=== PATIENT | female | born 1955 | race Caucasian/White ===

== ENCOUNTER 2016-07-12 07:54 | Outpatient (CLI) | payer OTHER ==
[2016-07-12 08:42] LABS: eGFR (African) > 60; eGFR (Non-African) > 60
== END 2016-07-12 07:55 ==
LOC: LAB 07:54
PROVIDERS: ATTEND Physician Assistant
DX: I10 Essential (primary) hypertension (principal); R73.9 Hyperglycemia, unspecified; E78.00 Pure hypercholesterolemia, unspecified
CPT/HCPCS: 36415; 80053; 80061; 83036

== ENCOUNTER 2016-10-02 09:52 | Outpatient (CLI) | payer OTHER ==
--- NOTE | 2016-10-02 13:44 | OP Clinic Progress Note ---
REASON FOR VISIT: Kadie is seen with left-sided otalgia and deep discomfort. The ear canal is nice and clean after several washings. She had some nasal congestion and stuffiness also and blew some yellow out of her nose. She has taken some Keflex and it has not really changed. With a rhinoscope, she has edematous nasal membranes that are somewhat allergic looking, kind of pale and bulky. There is some thick turbid secretions. I do not see polyps. She had sinonasal surgery in 2010. Overall, she has been improved with fewer headaches and generally a better airway. When she gets sinus infections, they tend to resolve much more rapidly. The left eardrum is markedly retracted, stiffened, and pulled in at the malleus. 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 She has had a release of this previously with fairly marked improvement of disequilibrium. With the patient's consent and understanding of the possibility of a perforated eardrum, I did a myringotomy and closed it over with a paper patch. She had at least moderate to 50% improvement of her symptoms immediately. Her balance also seemed to be better. PLAN: I have given her a Z-Anish with a renewal. I will see her back in about 2 weeks. cc: VALERIE Salvador
== END 2016-10-02 09:53 ==
LOC: ENT 09:52
PROVIDERS: ATTEND Otolaryngology
DX: H92.02 Otalgia, left ear (principal); R60.9 Edema, unspecified
CPT/HCPCS: 69610; 99214

== ENCOUNTER 2016-10-09 14:56 | Outpatient (CLI) | payer OTHER ==
--- NOTE | 2016-10-10 11:04 | OP Clinic Progress Note ---
REASON FOR VISIT: This 61-year-old lady returns with somewhat cryptic left-sided neck, ear, throat , jaw, and skull pain. It is not sharp. Not lancinating. At some degree, it comes and goes, but describes it as a very deep ponderous aching. I did a myringotomy at her last visit and she had a small amount of improvement initially but has persisted with the discomfort. I changed the paper patch. The small myringotomy has healed maybe 50 percent in the interval week. I do not see evidence of active infection. Additionally, the neck has no palpable mass. As with a lot of head and neck pain syndrome, it is a little difficult for her to exactly identify the region. She points sometimes over the mandible, sometimes just in the area behind her mandible but not really in the base of the neck. Sometimes she points overlying the mastoid and the general configuration of the C2 nerve distribution. By manual palpation I felt in her throat and the submandibular gland area and also the parotid and they are not tender. I palpated on the left tonsil base enough to get a fairly good gag. She does not feel that was near the etiology of her pain. There is no palpable mass in the neck. With her informed consent and her 's too, I used 1:100,000 epinephrine and 1% Xylocaine local injection with a 20-gauge needle in the C2 nerve distribution. Initially, it did not seem to make much difference but after about 5 minutes, the patient had began to feel like, wow, most of that pain is going away. The exact etiology of the pain syndrome on the left side still is not entirely clear. There is no evident mass. It does not seem to be infectious overlying the parotid. The tonsillar fossa does not seem to have pain and discomfort. PLAN: I talked with her and her . I think we need to at least get a CT scan of the skull base or the neck. Either a CT with contrast or an MRI. She will need to get clearance by her insurance company to get this done. Patient will be seen in follow up after she gets that. She is at least improved today with the Xylocaine local injection relief in the left nape of neck area--the C2 nerve distribution. VALERIE Amanda
== END 2016-10-09 14:57 ==
LOC: ENT 14:56
PROVIDERS: ATTEND Otolaryngology
DX: M54.2 Cervicalgia (principal); H92.02 Otalgia, left ear; G44.89 Other headache syndrome; R68.84 Jaw pain
CPT/HCPCS: 64450; 99214

== ENCOUNTER 2016-10-13 10:34 | Outpatient (CLI) | payer OTHER ==
[2016-10-13 11:09] LABS: eGFR (African) > 60; eGFR (Non-African) > 60
--- NOTE | 2016-10-13 18:50 | Diagnostic Imaging Report ---
[facility] [address] [facility] [address] [place], [place]. [address] Report Submission Date: Oct 13, 2016 6:49:02 PM CDT Patient Study Name: RAGHU LOZADA Date: Oct 13, 2016 11:25:30 AM CDT Modality Type: MR Gender: F Description: MRI SOFT TISSUE NECK W & W/O CONTRAST : 55 Institution: [facility] Physician: FREEMAN LUGO MRI soft tissue neck with and without contrast. History: Left sided neck pain and possible mass. Technique: Multiplanar multisequence images of the neck were obtained prior to and following the uneventful administration 15 cc omniscan . Findings: There is evidence of previous anterior cervical fusion noted C5 to C7. The bilateral parotid and submandibular glands are normal and symmetric in size. No adenopathy is seen throughout the neck. The vascular structures are normal in caliber throughout. No abnormal post contrast enhancement . The airway does appear to be patent. No suspicious mass is visualized. Limited views of the thyroid gland are unremarkable. Impression: 1. No evidence of mass or adenopathy within the neck. 2. Evidence of previous anterior cervical fusion . Electronically signed on Oct 13, 2016 6:49:02 PM CDT by: Paul GANDHI
== END 2016-10-13 10:35 ==
LOC: RAD 10:34
PROVIDERS: ATTEND Otolaryngology
DX: R22.1 Localized swelling, mass and lump, neck (principal)
CPT/HCPCS: 70549; 82565

== ENCOUNTER 2016-10-16 14:28 | Outpatient (CLI) | payer OTHER ==
--- NOTE | 2016-10-17 11:44 | OP Clinic Progress Note ---
REASON FOR VISIT: Kadie is seen in follow up of her left-sided neck ache, history of cervical fusion, and fairly marked severe otalgia. About 10 days ago, I did a myringotomy on a very retracted left eardrum. In the interval, she feels maybe 50% improved. I have debrided the left ear under the microscope and cleaned out some cerumen. I removed a small scab over the anterior myringotomy. The myringotomy site is closed over maybe 95%. PLAN: I discussed options with Kadie. If her symptoms still stay as they are, she is comfortable with no further treatment. If they do tend to reoccur, I discussed additional small surgical options. She will check back in about a month. cc: VALERIE Amanda
== END 2016-10-16 14:30 ==
LOC: ENT 14:28
PROVIDERS: ATTEND Otolaryngology
DX: H92.09 Otalgia, unspecified ear (principal)
CPT/HCPCS: 99213

== ENCOUNTER 2016-11-13 13:24 | Outpatient (CLI) | payer OTHER ==
--- NOTE | 2016-11-19 11:18 | OP Clinic Progress Note ---
HISTORY: This 61-year-old lady has had left-sided ear difficulties for many years. 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 She has also had pressure, pain, and discomfort. She has had constant tinnitus , but again, that has been for many years. I did a myringotomy with a patch and that had been patched in the past. Overall, since that myringotomy has healed up, she has generally been improved. That was done on October 02, 2016. The left ear has a small amount of exudate deep in the inferior sulcus next to the annulus. I rinsed the ear with alcohol. There was a mild amount of stinging when that was done. There was no perforation. The stinging is noticeable but very tolerable. The umbo of the malleus is markedly and significantly medially retracted consistent with a very tight tensor syndrome. IMPRESSION: There is a very mild otitis externa that maybe part of the left ear pain and discomfort symptoms. PLAN: I recommended alcohol rubbing drops 2 to 3 times a week. She feels that the amount of discomfort she had was very tolerable and is agreeable to do this. She may return on a p.r.n. basis. cc: VALERIE Amanda
== END 2016-11-13 13:25 ==
LOC: ENT 13:24
PROVIDERS: ATTEND Otolaryngology
DX: H66.92 Otitis media, unspecified, left ear (principal)
CPT/HCPCS: 99213

== ENCOUNTER 2017-07-30 08:45 | Outpatient (CLI) | payer OTHER ==
[2017-07-30 09:33] LABS: eGFR (African) > 60; eGFR (Non-African) > 60
== END 2017-07-30 08:46 ==
LOC: LAB 08:45
PROVIDERS: ATTEND Physician Assistant
DX: Z79.899 Other long term (current) drug therapy (principal); Z00.00 Encounter for general adult medical examination without abnormal findings; E78.2 Mixed hyperlipidemia
CPT/HCPCS: 36415; 80053; 80061

== ENCOUNTER 2018-07-30 14:19 | Outpatient (CLI) | payer OTHER ==
[2018-07-30 15:02] LABS: eGFR (Non-African) > 60
== END 2018-07-30 14:21 ==
LOC: LAB 14:19
PROVIDERS: ATTEND Family Medicine
DX: I25.10 Atherosclerotic heart disease of native coronary artery without angina pectoris (principal); I10 Essential (primary) hypertension
CPT/HCPCS: 36415; 80053; 80061